=== PATIENT | female | born 1975 | race Caucasian/White ===

== ENCOUNTER 2016-12-07 22:18 | Emergency (ER) | payer OTHER ==
[~2016-12-07 22:18] MED LIST: ADVAIR 250-501 EAC1 INH; ALBUTEROL17 GM INH; ALBUTEROL20 ml INH; ANTI-FUNGAL15 GM TOP; CLARITIN10 M2 PO; EC-NAPROSYN500 MG PO; FLEXERIL10 MG PO; IBUPROFEN800 MG PO; LORTAB 5/500 TA1 TA1 PO; METOPROLOL TAR25 MG PO; MULTI VITAMIN1 EACH PO; NEURONTIN100 MG PO; PEPCID AC20 M2 PO; PREVPAC PA1 COMB.PKG PO; TRIDESILON 0.0515 G2 TOP; TYLENOL #3 PO; ZESTORETIC 20/21 TAB PO
== END 2016-12-07 22:20 | disposition left against medical advice (07) ==
LOC: SED 22:18
DX: F10.129 Alcohol abuse with intoxication, unspecified (principal); I10 Essential (primary) hypertension; F17.200 Nicotine dependence, unspecified, uncomplicated; Z98.51 Tubal ligation status; Z98.890 Other specified postprocedural states
CPT/HCPCS: 99282